=== PATIENT | male | born 1960 | race Caucasian/White ===

== ENCOUNTER 2018-07-10 16:11 | Inpatient (IN) | payer OTHER ==
[~2018-07-10] VITALS: Ht 182.9 cm; Wt 103.0 kg
[2018-07-10 16:22] VITALS: BP 185/109
[2018-07-10] MEDS ORDERED: ASPIRIN 81 MG TAB.CHEW PO ONE (16:30)
[2018-07-10 17:03] LABS: BASOPHILS # (AUTO) 0.1 K/uL (0.00-0.22); BASOPHILS % (AUTO) 0.7 % (0.0-2.0); EOSINOPHILS # (AUTO) 0.2 K/uL (0-0.4); HEMATOCRIT 44.6 % (36-52); HEMOGLOBIN 15.2 g/dL (12.0-18.0); LYMPHOCYTES # (AUTO) 2.3 K/uL (2.0-11.5); LYMPHOCYTES % (AUTO) 29.1 % (20.5-51.1); MEAN CORPUSCULAR HEMOGLOBIN 31 pg (27-31); MEAN CORPUSCULAR HGB CONC 34 g/dL (33-37); MEAN CORPUSCULAR VOLUME 91.1 fL (80-94); MONOCYTES # (AUTO) 0.6 K/uL (0.8-1.0); MONOCYTES % (AUTO) 7.4 % (1.7-9.3); NEUTROPHILS # (AUTO) 4.8 K/uL (1.8-7.7); NEUTROPHILS % (AUTO) 59.8 % (42.2-75.2); PLATELET COUNT (AUTO) 282 K/uL (140-450); RED BLOOD CELL COUNT(AUTO) 4.89 MIL/uL (4.20-6.10); RED CELL DISTRIBUTION WIDTH 13.2 % (11.6-13.7); WHITE BLOOD COUNT (AUTO) 8.1 K/uL (4.8-10.8)
[2018-07-10 17:19] LABS: ANION GAP 11.8 (8-16); CREATININE 0.9 mg/dL (0.7-1.3); POTASSIUM 3.8 mmol/L (3.5-5.1)
[2018-07-10 17:25] LABS: PROTHROMBIN TIME 9.3 secs (10.8-13.4)
--- NOTE | 2018-07-10 18:10 | NUR ---
58 Y MALE BIB FAMILY C/O "COMPRESSION" MIDSTERNAL INTERMITTENT PAIN X 2 WKS RADIATING LUE. UNPROVOKED, SELF LIMITING. AFTER RECIEVING ASPIRIN, PT STATES PAIN IS 1/10 AND THAT HE FEELS MUCH BETTER. NSR AT 75. BP 165/99, NOTIFIED. BED IS DOWN, LOCKED, BED RAIL X 1, ERMD NOTIFIED. HX--- HYPERLIPIDEMIA RX----BODERLINE HTN---NO MEDS
--- NOTE | 2018-07-10 18:30 | NUR ---
DR BENITEZ AT BEDSIDE
[2018-07-10 19:06] LABS: ANION GAP 12.6 (8-16); CARBON DIOXIDE 28.1 mmol/L (21-32); CREATININE 0.9 mg/dL (0.7-1.3); POTASSIUM 3.7 mmol/L (3.5-5.1)
[2018-07-10 19:10] LABS: PROTHROMBIN TIME 9.3 secs (10.8-13.4)
[2018-07-10 19:12] LABS: ALBUMIN 3.8 g/dL (3.4-5.0); TOTAL BILIRUBIN 0.5 mg/dL (0.0-1.0)
[2018-07-10] MEDS ORDERED: NACL 0.9% 1,000 ML IV ONE (19:25)
[2018-07-10] MEDS ORDERED: METOPROLOL 5 MG/5 ML VIAL IVP ONE (19:25)
--- NOTE | 2018-07-10 19:48 | NUR ---
new bp is 156/95
[2018-07-10 19:49] LABS: D-DIMER < 100 ng/ml (0-400)
--- NOTE | 2018-07-10 19:57 | NUR ---
Dr. Sosa evaluating patient at bedside.
[2018-07-10] MEDS ORDERED: ACETAMINOPHEN 325 MG TAB PO PRN (20:15)
[2018-07-10] MEDS ORDERED: DOCUSATE SODIUM 100 MG GELCAP PO PRN (20:15)
[2018-07-10] MEDS ORDERED: HYDROcodone/APAP 7.5/325 MG 1 TAB PO PRN (20:15)
[2018-07-10] MEDS ORDERED: KETOROLAC 30 MG/ML VIAL IVP PRN (20:15)
[2018-07-10] MEDS ORDERED: ONDANSETRON 4 MG/2 ML VIAL IM/IVP PRN (20:15)
--- NOTE | 2018-07-10 20:35 | NUR ---
Patient will be admitted to care of [facility]. Admited to TELE. Will go to room 105B. Belongings list completed. Report to RAMONA MCKEON.
--- NOTE | 2018-07-10 20:40 | NUR ---
Patient arrived into unit via rney, accompanied by MARINE STEWARD and daughter; patient ambulated from gurney to bed without assistance. Patient is A/Ox4, able to make needs known. Introduced self, updated board, oriented patient to room and hospital environment. Chief complaint of chest pain. Diagnosis is chest pain. No SOB or distress noted, on room air. IV site noted on left antecubital, 20 gauge, intact, running IVF at 100mL/hr. Skin intact. Vital signs upon admission are as follows: BP 128/86, RR 15, HR 68, Temp 97.6, O2Sat 97% on room air. Bed in the lowest position, call light within reach. Initial assessment done. Will continue to monitor.
--- NOTE | 2018-07-10 20:50 | NUR ---
Dr. Montalvo at bedside to assess patient.
[2018-07-10 20:58] LABS: FREE T4 (FREE THYROXINE) 0.91 ng/dL (0.76-1.46); MAGNESIUM 2.5 mg/dL (1.8-2.4); PHOSPHORUS 3.1 mg/dL (2.5-4.9); THYROID STIMULATING HORMONE 1.04 uIU/mL (0.34-3.74)
--- NOTE | 2018-07-10 23:00 | NUR ---
Vitals taken, no distress noted. Patient awake, using laptop.
[2018-07-10] MEDS: NACL 0.9% 1,000 ML IV SCH (23:23)
[2018-07-10] MEDS: METOPROLOL 50 MG TAB PO SCH (23:23)
--- NOTE | 2018-07-11 01:10 | NUR ---
Rounds done, patient asleep, visible chest rise and fall noted.
--- NOTE | 2018-07-11 03:30 | NUR ---
Frequent checks made, no SOB noted.
[2018-07-11 04:00] VITALS: BP 141/78
[2018-07-11] MEDS: NACL 0.9% 1,000 ML IV SCH (06:16)
[2018-07-11 08:00] VITALS: BP 142/80
--- NOTE | 2018-07-11 08:10 | NUR ---
RECEIVED REPORT FROM FATOU CHARGE NURSE FOR CONTINUITY OF CARE. PT IN STABLE CONDITION. RESPIRATIONS EVEN AND UNLABORED. IV INTACT AND PATENT. SAFETY MEASURES IN PLACE. CALL LIGHT AT BEDSIDE. BED IN LOW POSITION. WILL CONTINUE TO MONITOR.
--- NOTE | 2018-07-11 08:13 | NUR ---
PATIENT HAS BEEN SCREENED AND CATEGORIZED MODERATE NUTRITION RISK. PATIENT WILL BE SEEN WITHIN 3-5 DAYS OF ADMISSION. 07/13/18[address]
[2018-07-11] MEDS: METOPROLOL 50 MG TAB PO SCH (08:48)
[2018-07-11] MEDS ORDERED: LACTOBACILLUS RHAMNOSUS GG 1 EACH CAP PO SCH (09:00)
[2018-07-11] MEDS ORDERED: ASPIRIN 81 MG TAB.CHEW PO SCH (09:00)
--- NOTE | 2018-07-11 09:00 | NUR ---
GAVE ORDERED DUE MEDICATIONS AT THIS TIME. PT TOLERATED WELL. CALL LIGHT AT BEDSIDE. BED IN LOW POSITION. WILL CONTINUE TO MONITOR.
[2018-07-11 10:09] LABS: ANION GAP 13.3 (8-16); CARBON DIOXIDE 25.9 mmol/L (21-32); POTASSIUM 4.2 mmol/L (3.5-5.1)
[2018-07-11 10:14] LABS: CHOL/HDL RATIO 5.7 (1-4.5)
[2018-07-11 11:27] LABS: MEAN CORPUSCULAR HGB CONC 34 g/dL (33-37)
[2018-07-11] MEDS ORDERED: BLOOD GLUCOSE MONITORING 1 DEV DEV FS SCH (11:30)
[2018-07-11] MEDS ORDERED: INSULIN LISPRO SLIDING SCALE 100 UNITS/ML VIAL SUBQ PRN (11:30)
[2018-07-11] MEDS ORDERED: DEXTROSE 50% 50 ML SYR IVP PRN (11:30)
[2018-07-11 11:33] LABS: HEMATOCRIT 42.4 % (36-52); HEMOGLOBIN 14.4 g/dL (12.0-18.0); MEAN CORPUSCULAR HEMOGLOBIN 31 pg (27-31); MEAN CORPUSCULAR VOLUME 91.8 fL (80-94); PLATELET COUNT (AUTO) 263 K/uL (140-450); RED BLOOD CELL COUNT(AUTO) 4.62 MIL/uL (4.20-6.10); RED CELL DISTRIBUTION WIDTH 13.5 % (11.6-13.7)
--- NOTE | 2018-07-11 11:40 | NUR ---
PT OFF UNIT FOR STRESS TEST. PT IN STABLE CONDITION.
[2018-07-11 11:50] LABS: EOSINOPHILS % (MANUAL) 2 % (0-4); LYMPHOCYTES % (MANUAL) 30 % (20-46); MONOCYTES % (MANUAL) 6 % (5-12)
--- NOTE | 2018-07-11 12:00 | NUR ---
PT OFF UNIT FOR CARDIAC MONITORING
[2018-07-11 12:38] VITALS: BP 140/82
--- NOTE | 2018-07-11 12:38 | NUR ---
PT BACK ON UNIT FROM STRESS TEST. PT IN STABLE CONDITION.
[2018-07-11] MEDS ORDERED: ATOR20TA PO (12:59)
--- NOTE | 2018-07-11 14:10 | NUR ---
GAVE DISCHARGE INSTRUCTIONS PT VERBALIZED UNDERSTANDING OF INSTRUCTIONS. REMOVED IV LUMEN INTACT. REMOVED ID BAND. PT REFUSED WHEELCHAIR. ESCORTED PT TO LOBBY WHERE FAMILY WAS WAITING WITH CARE. PT IN STABLE CONDITION.
[2018-07-11] MEDS ORDERED: ATORVASTATIN 20 MG TAB PO SCH (17:00)
== END 2018-07-11 14:10 | disposition home or self-care (01) | DRG 313 ==
LOC: MED 16:11 → MTU 20:16
PROVIDERS: ADMIT General Practice; ATTEND General Practice
DX: R07.9 Chest pain, unspecified (principal); I10 Essential (primary) hypertension; E83.41 Hypermagnesemia; F10.20 Alcohol dependence, uncomplicated; E11.65 Type 2 diabetes mellitus with hyperglycemia; E78.5 Hyperlipidemia, unspecified; Y90.9 Presence of alcohol in blood, level not specified
CPT/HCPCS: 36415; 71045; 80048; 80053; 82140; 82948; 83036; 83605; 83690; 83735; 83880; 84100; 84439; 84443; 84484; 85025; 85379; 85610; 85730; 87081; 93005; 93017; 96374; 99285; J1815; J3490; J7030